=== PATIENT | female | born 1940 | race Caucasian/White ===

== ENCOUNTER → 2016-08-13 | Outpatient (CLI) | payer OTHER | LOC: CAT 11:53 | DX: L02.01 Cutaneous abscess of face (principal); R60.9 Edema, unspecified ==

== ENCOUNTER → 2017-03-03 | Outpatient (CLI) | payer OTHER | LOC: SPEC 11:05 | DX: M48.061 Spinal stenosis, lumbar region without neurogenic claudication (principal); D18.09 Hemangioma of other sites; T14.8XXD Other injury of unspecified body region, subsequent encounter; W19.XXXA Unspecified fall, initial encounter ==

== ENCOUNTER 2020-07-29 10:12 | Inpatient (IN) | payer OTHER ==
[~2020-07-29] VITALS: Ht 152.4 cm; Wt 67.1 kg
[2020-07-29 10:13] VITALS: BP 140/62
[2020-07-29] MEDS ORDERED: LASIX 40 MG TAB40 MG PO (10:18)
[2020-07-29] MEDS ORDERED: LEVOTHYROXINE150 MC1 PO (10:18)
[2020-07-29] MEDS ORDERED: ZOCOR40 MG PO (10:18)
[2020-07-29] MEDS ORDERED: KLOR-CON 10 ER10 MEQ PO ×2 (10:18→10:21)
[2020-07-29] MEDS ORDERED: BUSPIRONE HCL7.5 MG PO (10:19)
[2020-07-29] MEDS ORDERED: VITAMIN C125 MG PO (10:19)
[2020-07-29] MEDS ORDERED: COZAAR100 MG PO (10:19)
[2020-07-29] MEDS ORDERED: CALCIUM + VITA1 EAC2 PO (10:20)
[2020-07-29] MEDS ORDERED: IRON325 M1 PO (10:20)
[2020-07-29] MEDS ORDERED: ASA81BEC PO (10:20)
[2020-07-29] MEDS ORDERED: VITAMIN D310 MC4 PO (10:20)
[2020-07-29] MEDS ORDERED: CENTRUM SILVER1 EACH PO (10:21)
[2020-07-29] MEDS ORDERED: BUSPIRONE HCL15 MG PO (10:21)
[2020-07-29] MEDS ORDERED: ZYRTEC10 M4 PO (10:21)
[2020-07-29] MEDS ORDERED: LANTUS SUBQ ×2 (10:22→10:23)
[2020-07-29] MEDS ORDERED: NOVOLIN N100 UNIT/2 SUBQ (10:22)
[2020-07-29] MEDS ORDERED: FOSAMAX 70 MG T70 MG PO (10:23)
[2020-07-29 10:59] LABS: ABSOLUTE NEUTROPHILS 7.6 thou/uL (1.4-8.2); BASOPHILS 0.3 % (0.0-2.0); HEMATOCRIT 36.3 % (37.0-47.0); HEMOGLOBIN 12.2 gm/dL (12.0-15.0); LYMPHOCYTES 11.8 % (24.0-44.0); MCH 29.4 pg (26.0-34.0); MCHC 33.5 g/dL (28.0-37.0); MCV 87.6 fL (80.0-100.0); MONOCYTES 5.7 % (1.0-8.0); PLATELET COUNT 182 thou/uL (150-400); POLYS 82.2 % (36.0-66.0); RBC 4.15 mil/uL (4.20-5.00); RDW 12.5 % (10.5-14.5); WBC 9.2 thou/uL (4.0-11.0)
[2020-07-29 11:17] LABS: ANION GAP 13 mmol/L (7-16); BUN 22 mg/dL (7-18); CALCIUM 9.8 mg/dL (8.5-10.1); CHLORIDE 95 mmol/L (98-107); CO2 24 mmol/L (21-32); CREATININE 1.2 mg/dL (0.6-1.0); GLUCOSE 377 mg/dL (74-106); POTASSIUM 4.6 mmol/L (3.5-5.1); SODIUM 132 mmol/L (136-145)
[2020-07-29 11:27] LABS: ALBUMIN 3.4 g/dL (3.4-5.0); SGOT 15 U/L (15-37); SGPT 27 U/L (14-59); TOTAL BILIRUBIN 1.2 mg/dL (0.2-1.0); TOTAL PROTEIN 6.9 g/dL (6.4-8.2); TROPONIN-I <0.06 ng/mL (<0.06)
--- NOTE | 2020-07-29 12:08 | EKG ---
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: CAROLYNE : 1940 Requested By: Alex Jones Order Number: [id number] MD: Dallas Dewitt Measurements Intervals [place] Rate: 100 P: 58 GA: 168 QRS: 80 QRSD: 154 T: 51 QT: 344 QTc: 444 Interpretive Statements Sinus tachycardia Nonspecific intraventricular conduction delay Compared to ECG 11/21/1997 15:20:00 Intraventricular conduction delay now present Electronically Signed On 07-29-2020 12:08:05 CDT by Dallas Dewitt [email or web address] <ELECTRONICALLY SIGNED> By: Dallas Dewitt MD, [facility] 07/29/20 1208 [id number] [id number] Dallas Dewitt MD, FACC /EPI
[2020-07-29 13:50] VITALS: BP 140/62
[2020-07-29 14:03] LABS: FOLIC ACID 25.9 ng/mL (8.6-58.9)
[2020-07-29 14:37] VITALS: BP 101/51
[2020-07-29 15:26] VITALS: BP 122/78
[2020-07-29] MEDS ORDERED: COZAAR 25 MG TA25 M1 PO (15:45)
[2020-07-29 16:22] LABS: URINE BILIRUBIN NEGATIVE (Negative); URINE BLOOD TRACE (Negative); URINE CLARITY CLEAR; URINE COLOR YELLOW; URINE GLUCOSE-RANDOM* 2+ (Negative); URINE KETONES 3+ (Negative); URINE LEUKOCYTES-REFLEX NEGATIVE (Negative); URINE NITRITE-REFLEX NEGATIVE (Negative); URINE PROTEIN (DIPSTICK) NEGATIVE (Negative); URINE SPECIFIC GRAVITY >= 1.030 (1.005-1.035); URINE UROBILINOGEN 0.2 E.U./dl (0.2-1.0)
--- NOTE | 2020-07-29 16:25 | NUR ---
Pt transferred from ED aprox 1530. Pt alert but forgetful. States she does not have any pain when not moving. IVF infusing. Admission completed. Pt's daughter is at bedside and aided with admission. Rain catheter in place. Hospital doctor visited with patient in the room. Ortho doctor was consulted in the ED. Call light within reach. Will continue to monitor.
[2020-07-29 19:43] VITALS: BP 114/47
--- NOTE | 2020-07-30 03:55 | NUR ---
ASSUMED CARE OF PT AT SHIFT CHANGE. PT IS AOX4 BUT CAN BE FORGETFUL. FALL PRECAUTION IN PLACE. SMITH IN PLACE AND PATIENT. PT COMPLAINS OF RIGHT HIP PAIN WHEN MOVED. PT PLACED NPO AT MIDNIGHT FOR POSSIBLE PROCEDURE. PT DENIED NAUSEA OR SOA. ASSESSMENT CHARTED. PT WAS ABLE TO GET COMFORTABLE AND SLEEP PART OF THE SHIFT. VSS AND NO S/S OF ACUTE DISTRESS. WILL CONTINUE TO MONITOR.
--- NOTE | 2020-07-30 06:36 | NUR ---
RECEIVED OT EVAL AND TREAT ORDERS. PER CHART REVIEW, PT. HAS PELVIC FRACTURE AND IS WAITING ON ORTHOPEDIC SURGERY CONSULT. WILL DEFER UNTIL AFTER CONSULT. WILL CHECK BACK LATER TODAY.
[2020-07-30 07:20] VITALS: BP 127/69
--- NOTE | 2020-07-30 09:39 | NUR ---
ASSESSMENT: CM REVIEWED CHART AND MET WITH PATIENT AT THE BEDSIDE. PT WAS ADMITTED AFTER A FALL AND RIGHT PELVIC FX. ORTHO HAS BEEN CONSULTED TO SEE PATIENT WELL PT/OT. PT REPORTS THAT SHE LIVES IN A HOUSE WITH HER DAUGHTER. PT REPORTS THAT SHE HAS NO STEPS TO ENTER THE HOME AND ALL HER NEEDS ARE ON THE MAIN LEVEL. PT REPORTS HER DAUGHTER NO LONGER LETS HER GO INTO THE BASEMENT. PT REPORTS THAT SHE NORMALLY AMBULATES INDEPENDENTLY BUT DOES HAVE A CANE AND WALKER AT HOME THAT SHE USES. PT REPORTS HAVING A TUB/SHOWER AND STATES SHE DOES NOT GET IN THERE AND NORMALLY DOES A BED BATH. PT REPORTS THAT SHE HAS NO HX OF HH OR SNF. CM DISCUSSED ROLE. CM WILL AWAIT FURTHER PLANS FROM ORTHO AND PT/OT EVALS. CM WILL CONTINUE TO FOLLOW TO ASSIST NEEDED.
--- NOTE | 2020-07-30 12:55 | NUR ---
PT ALERT AND ORIENTED TIMES THEE, WITH PERIODS OF CONFUSION. VSS, IVF INFUSING PER ORDER. SMITH TO DD. PT DENIES PAIN/SOA AT THIS TIME. PT TOLERATES MEDS AND MEALS. PT DAUGHTER AT BESIDE. WILL CONTINUE TO MONITOR.
[2020-07-30 16:05] VITALS: BP 116/62
[2020-07-30 19:26] VITALS: BP 126/60
[2020-07-31 03:50] VITALS: BP 123/62
--- NOTE | 2020-07-31 04:04 | NUR ---
RECEIVED CARE OF THIS PATIENT AT 1900. PATIENT ALERT AND ORIENTED X4. REMAINS ON BEDREST D/T FX PELVIS. IV PATENT IN LAC WTIH FLUIDS INFUSING. DENIES PAIN. ACCUCHECK WAS 206, 4 UNITS LISPRO INSULIN GIVEN. SLEPT MOST OF NIGHT.
[2020-07-31 07:59] VITALS: BP 115/67
--- NOTE | 2020-07-31 13:40 | NUR ---
ON-GOING ASSESSMENT: CM REVIEWED CHART AND SPOKE WITH PATIENT WELL WITH HER DAUGHTER ANGELIA. AsyaN HAS EVALUATED PATIENT AND FEEL SHE WILL BE A GOOD CANIDATE FOR AND WILL SUBMIT FOR AUTH FOR POSSIBLE ADMISSION FOR TOMORROW IF INSURANCE APPROVES. PT AND DAUGHTER AGREEABLE AND HOPEFUL PT WILL BE ABLE TO GO TO . CM ALSO RVIEWED SNF LIST WITH THEM AT THE BEDSIDE FOR THEM TO REVIEW A BACKUP PLAN. CM ALSO EMAILED LIST TO PATIENTS DAUGHTER PER HER REQUEST AT [email or web address]. CM WILL CONTINUE TO FOLLOW TO ASSIST NEEDED AND AWAIT FURTHER INPUT FROM .
--- NOTE | 2020-07-31 17:05 | NUR ---
A/O, calm and cooperative; vss, afebrile. complained of right wrist swelling and pain, voice that she had told about it. Flatform on the walker helped the patient surpport her weight during ambulating.
[2020-07-31 17:11] VITALS: BP 107/53
[2020-07-31 19:31] VITALS: BP 107/53
--- NOTE | 2020-08-01 03:13 | NUR ---
RECIEVED CARE OF THIS PATIENT AT 1900. PATIENT ALERT AND ORIENTED X4. REMAINS IN BED THIS SHIFT D/T THE PAIN WHEN WEIGHT APPLIED TO R HIP, C/O MILD PAIN, MED GIVEN. ACCUCHECK WAS 198, 3 UNITS LISPRO INSULIN GIVEN. SLEPT MOST OF NIGHT.
[2020-08-01 04:47] VITALS: BP 133/64
[2020-08-01 07:30] VITALS: BP 142/81
[2020-08-01] MEDS ORDERED: CALCITONIN-SAL3.7 ML NASAL (08:17)
--- NOTE | 2020-08-01 12:15 | NUR ---
Assumed care of pt at 0700. Pt a&ox4 but forgetful at times. Pain controlled with prn pain meds. IVF infusing. Awaiting to collect a stool sample. Up to 50 pounds weight bearing on RLE. Plan to go to SNF. Fall precautions in place. Will continue to monitor.
--- NOTE | 2020-08-01 12:28 | NUR ---
AUTHORIZATION FOR ACUTE REHAB DENIED BY INSURANCE. PEER TO PEER, IF DESIRED, MUST BE COMPLETED BY AUGUST 06 AT 11:00 AM. TO PERFORM PEER TO PEER, CALL . CREDIT HISTORIAN INFORMED OF DENIAL.
--- NOTE | 2020-08-01 14:30 | NUR ---
ON-GOING ASSESSMENT: SHIRAZ REVIEWED CHART AND WAS NOTIFIED BY Hollie VERDIN THAT INSURANCE HAS DENIED ACUTE REHAB AND RECOMMENDING SNF. CM NOTIFIED PATIENT. CM ATTEMPTED TO CONTACT PATIENTS SON/DPOA BUT NUMBER CONTINUES TO STATE PT IS UNAVAILABLE TO TAKE CALLS AT THIS TIME. CM SPOKE WITH PT WHO REPORTS THAT SHE LIVES WITH DAUGHTER AND TO CALL HER. CM ATTEMPTED TO CALL ANGELIA LAGOS BUT UNABLE TO REACH AND VM WAS LEFT. PT LEFT LIST OF SNF PREVIOUS DAYS AT PATIENTS BEDSIDE AND DISCUSSED WITH DAUGHTER AND PT AND AWAITING THEIR DECISION ON SNF OPTIONS WE WILL HAVE TO SEND REFERRALS AND RECEIVE INSURANCE AUTH. AWAITING CALL BACK AT THIS TIME. NO ANTICIPATED WEEKEND DISCHARGE.
--- NOTE | 2020-08-01 14:50 | NUR ---
ON-GOING ASSESSMENT: CM SPOKE WITH PATIENT AND DAUGHTER ANGELIA LAGOS THIS AFTERNOON. DAUGHTER IS NOW AWARE OF DENIAL FOR 5N. A PEER TO PEER CAN BE COMPLETED BY CALLING BY 11AM July OR CAN PURSE SNF. CM NOTIFIED PT AND DAUGHTER. DAUGHTER REQUESTED REFERRAL TO [facility]. CM FAXED REFERRAL AND NOTIFIED [facility] WHO STATES THEY WILL REVIEW. CM NOTIFIED BEDSIDE RN PT NEEDS A NEGATIVE COVID TEST COMPLETED PRIOR TO DISCHARGE. AWAITING INPUT FROM [facility] AND THEY WILL NEED TO SEEK AND RECEIVE INSURANCE AUTH PRIOR TO DISCHARGE. [facility] ADMISSIONS PHONE:[phone] [facility] OVP: [phone]. [facility] FAX:[phone]
[2020-08-01 15:45] VITALS: BP 121/62
[2020-08-01 20:41] VITALS: BP 129/65
--- NOTE | 2020-08-02 03:47 | NUR ---
Pt. rested quietly during the night when checked on during frequent rounds. She offers no c/o pain or discomfort. Spent most of the late evening in bed watching television. Bed alarm is on.
[2020-08-02 07:20] VITALS: BP 129/65
--- NOTE | 2020-08-02 14:01 | NUR ---
ASSUMED PT CARE AROUND 0715. PT ALERT X ORIENTEDX 3-4. ON ROOM AIR. NO CODE STATUS. UP WITH 1 PERSON ASST. IV LF AC WITH NS/100ML/HR. COVID TEST RESULT NEGATIVE. ACCUCHECK. PT'S DAUGHTER CAME TO SEE HER AROUND 1300. FALL PRECAUTION IN PLACE. CALL LIGHT IN REACH. WILL CONT TO MONITOR.
[2020-08-02 16:48] VITALS: BP 137/73
[2020-08-02 21:15] VITALS: BP 146/68
--- NOTE | 2020-08-03 02:06 | NUR ---
PT DENIED PAIN SO FAR.PT CONT WITH IVF ORDERED.NO BM NOTED SO FAR,STOOL STILL NEEDED.SMITH CATH TO DD WITH LIGHT YELLOW URINE NOTED IN THE BAG.BG DONE,NO INSULIN COVERAGE NEEDED.PT SLEEPING ON HER BED AT THIS TIME.CALL LIGHT WITHIN REACH.
[2020-08-03 04:10] VITALS: BP 154/90
[2020-08-03 07:40] VITALS: BP 144/70
--- NOTE | 2020-08-03 09:48 | NUR ---
Assumed care of pt at 0700. Pain controlled with prn pain meds. IV fluids discontineud. Rain catheter to be discontinued tomorrow 08/04. Awaiting ins auth to go to SNF. Family at bedside. Call light within reach. Fall precautions in place. Will continue to monitor.
[2020-08-03 11:13] LABS: HEMATOCRIT 32.5 % (37.0-47.0); HEMOGLOBIN 10.8 gm/dL (12.0-15.0); MCH 29.3 pg (26.0-34.0); MCHC 33.1 g/dL (28.0-37.0); MCV 88.6 fL (80.0-100.0); RBC 3.67 mil/uL (4.20-5.00); WBC 4.3 thou/uL (4.0-11.0)
[2020-08-03 11:43] LABS: CREATININE 0.9 mg/dL (0.6-1.0); POTASSIUM 3.6 mmol/L (3.5-5.1)
[2020-08-03 16:25] VITALS: BP 132/60
[2020-08-03 20:09] VITALS: BP 122/58
--- NOTE | 2020-08-04 04:32 | NUR ---
RECEIVED CARE OF THIS PATIENT AT 1900. PATIENT ALERT AND ORIENTED X4. REMAINS ON BEDREST D/T THE PAIN IN THE R HIP WHEN SHE STANDS. SHE ALSO HAS A 50 POUND LIMIT ON THAT HIP. PATIENT HAS A SMITH THAT IS PATENT WITH YELLOW URINE. C/O ACHING IN R LOWER EXT OF 2-3. DID NOT REQUIRE MED FOR THIS. SLEPT MOST OF NIGHT.
[2020-08-04 08:22] VITALS: BP 154/79
--- NOTE | 2020-08-04 11:41 | NUR ---
SHIRAZ S/W MARCELO WITH [facility] OP. AUTH WAS RECEIVED. MARCELO WILL ONLY SET UP TRANSPORTATION ONCE COVID RESULTS RECEIVED. MARCELO STATED "RAPID" TEST WAS SUITABLE. SHIRAZ INFM PT'S BEDSIDE RN PT NEEDS COVID TEST. SHIRAZ NOTIFIED PT AND HER DTR, ANGELIA LAGOS, THAT PT WILL TRANSPORT TODAY PENDING COVID RESULTS. US ASKED TO MAKE CHART COPY.
--- NOTE | 2020-08-04 15:23 | NUR ---
PT DISCHARGING TODAY TO [facility] OP SKILLED FAXED DC ORDERS/SUMMARY TO FACILITY SPOKE WITH MARCELO IN ADM SHE RECEIVED ORDERS/COVID RESULT AND ARRANGED TRANSPORT BY [facility] FOR 1630 TODAY. DTR NOTIFIED OF DC AND TIME OF TRANSPORT. UNIT NOTIFIED AND CHART COPY PER US. RN TO CALL REPORT TO [phone].
--- NOTE | 2020-08-04 17:00 | NUR ---
PT ASSESSED AT START OF SHIFT. PT IN GOOD SPIRITS. WORKED W/ THERAPY AND DID FAIR. SAT UP MOST OF AFTERNOON. EATING AND DRINKING WELL. DECLINED ANY MEDICINE FOR PAIN. SARAH RAMIREZ'Gisela PRIOR TO DISCHARGE. DISCHARGED AT THIS TIME PER JUAN JOSE DALEY.
== END 2020-08-04 18:01 | DRG 682 ==
LOC: ER 10:12 → EROBS 15:12 → 4S 15:12
PROVIDERS: Emergency Medicine; Nurse Practitioner; ADMIT Family Medicine; ATTEND Family Medicine
DX: N17.9 Acute kidney failure, unspecified (principal); S32.451A Displaced transverse fracture of right acetabulum, initial encounter for closed fracture; K92.1 Melena; E11.22 Type 2 diabetes mellitus with diabetic chronic kidney disease; E03.9 Hypothyroidism, unspecified; F41.9 Anxiety disorder, unspecified; E78.5 Hyperlipidemia, unspecified; E86.0 Dehydration; M81.0 Age-related osteoporosis without current pathological fracture; F03.90 Unspecified dementia, unspecified severity, without behavioral disturbance, psychotic disturbance, mood disturbance, and anxiety; N18.9 Chronic kidney disease, unspecified; I12.9 Hypertensive chronic kidney disease with stage 1 through stage 4 chronic kidney disease, or unspecified chronic kidney disease; Z20.822 Contact with and (suspected) exposure to COVID-19; Z66 Do not resuscitate; Z79.4 Long term (current) use of insulin; Z87.891 Personal history of nicotine dependence; Z79.899 Other long term (current) drug therapy; W18.39XA Other fall on same level, initial encounter; Y93.89 Activity, other specified; Y92.89 Other specified places as the place of occurrence of the external cause; Y99.8 Other external cause status
CPT/HCPCS: 10102; 10195